=== PATIENT | female | born 1995 | race Caucasian/White ===

== ENCOUNTER 2017-04-25 06:35 | Emergency (ER) | payer OTHER ==
[2017-04-25 06:45] VITALS: RESP 18; TEMP 98.6
[2017-04-25] MEDS ORDERED: LIDOCAINE/EPINEPHR/TETRACAINE 5 ML BOTTLE TOPICAL ONE ×2 (07:58→08:01)
--- NOTE | 2017-04-25 08:05 | ED ---
Skin/Abscess/FB HPI - General Chief complaint: Skin/Abscess/Foreign Body Stated complaint: Cyst Time Seen by Provider: 04/25/17 07:30 Source: patient, RN notes reviewed Mode of arrival: ambulatory Limitations: no limitations - History of Present Illness Initial comments: This is a 22-year-old female with a benign past medical history was issues. A small cyst on her tailbone region for at least a month or so last week is getting bigger and painful. She denies any overt fevers chills or sweats at this time she states is getting more painful. Denies any dysuria hematuria or other complaints) here before. She voices no other complaints MD complaint: abscess/boil - Related Data Previous Rx's Medication Instructions Recorded Hydrocodone/Acetaminophen [[place] 1 each PO Q6HR PRN #20 tab 04/25/17 5-325] Ibuprofen 800 mg PO Q6HR PRN #20 tablet 04/25/17 Sulfamethox-Tmp 800-160Mg [Bactrim 2 each PO Q12HR #40 tab 04/25/17 DS 800-160 mg] Allergies Allergy/AdvReac Type Severity Reaction Status Date / Time No Known Allergies Allergy Verified 04/25/17 07:18 Review of Systems ROS Statement: Those systems with pertinent positive or pertinent negative responses have been documented in the HPI. ROS Other: All systems not noted in ROS Statement are negative. Past Medical History Past Medical History: No Reported History History of Any Multi-Drug Resistant Organisms: None Reported Past Surgical History: No Surgical Hx Reported Past Psychological History: No Psychological Hx Reported Smoking Status: Never smoker Past Alcohol Use History: None Reported Past Drug Use History: Marijuana General Exam - General Exam Comments Initial Comments: This is a well-developed well-nourished awake alert oriented x 3 female Limitations: no limitations General appearance: alert, in no apparent distress Head exam: Present: atraumatic, normocephalic, normal inspection Eye exam: Present: normal appearance, PERRL, EOMI. Absent: scleral icterus, conjunctival injection, periorbital swelling Rectal exam: Present: normal inspection, other ( area of erythema consistent with abscess just inferior and left-sidedThe gluteal cleft. This approximately 3 x 2 cm. Fluctuance is present no rectal tenderness. No gluteal tenderness aside from the above-mentioned area. No evidence of drainage at this time.) Extremities exam: Present: normal inspection, full ROM, normal capillary refill. Absent: tenderness, pedal edema, joint swelling, calf tenderness Back exam: Present: normal inspection Neurological exam: Present: alert, oriented X3, CN II-XII intact Psychiatric exam: Present: normal affect, normal mood Skin exam: Present: warm, dry, intact, normal color Course Vital Signs 04/25/17 06:42 Temperature 98.6 F Pulse Rate 80 Respiratory 18 Rate Blood Pressure 126/72 O2 Sat by Pulse 100 Oximetry Procedures - Incision & Drainage Consent Obtained: verbal consent Time Out Performed?: Yes Site: buttock Anesthetic Used: lidocaine 1% I&D Cleaning Method: Betadine I&D Drainage Obtained: Pus Packing: Iodoform Culture Obtained?: Yes Complications: pain Patient Tolerated Procedure: well (Meds solution was placed on the area for about 20 minutes. I then did a field block of the area and local injection of 1 % Xylocaine plain. I did use a #11 blade to incise the area and obtained about 6-7 mL of pus. The area was then explored and loculations were broken with the hemostat and then half-inch oh to form gauze was placed.) Disposition Clinical Impression: Abscess of coccyx Disposition: HOME SELF-CARE Condition: Good Instructions: Abscess Incision and Drainage (ED), Abscess (ED) Additional Instructions: Since 3 times a day times Prescriptions: Hydrocodone/Acetaminophen [N[place] 5-325] 1 each PO Q6HR PRN #20 tab PRN Reason: Pain Ibuprofen 800 mg PO Q6HR PRN #20 tablet PRN Reason: Pain Sulfamethox-Tmp 800-160Mg [Bactrim DS 800-160 mg] 2 each PO Q12HR #40 tab Referrals: None,Stated [Primary Care Provider] - 1-2 days
[2017-04-25 09:10] VITALS: BP 118/67; PULSE 95
== END 2017-04-25 09:12 | disposition home or self-care (01) ==
LOC: EC 06:35
DX: L02.212 Cutaneous abscess of back [any part, except buttock and flank] (principal)
CPT/HCPCS: 10061; 87070; 87205; 99283

== ENCOUNTER 2017-05-05 23:15 | Emergency (ER) | payer SELFPAY ==
[2017-05-05 23:21] VITALS: BP 121/61; PULSE 82; RESP 18; TEMP 98.6
[2017-05-05] MEDS ORDERED: predniSONE 50 MG TAB PO STA (23:43)
[2017-05-05] MEDS ORDERED: FAMOTIDINE 20 MG TAB PO STA (23:43)
[2017-05-05] MEDS ORDERED: diphenhydrAMINE 50 MG CAP PO STA (23:43)
--- NOTE | 2017-05-05 23:47 | ED ---
Allergic Reaction HPI - General Chief complaint: Allergic Reaction Stated complaint: Rash Time Seen by Provider: 05/05/17 23:25 Source: patient, family, RN notes reviewed Mode of arrival: ambulatory Limitations: no limitations - History of Present Illness Initial Comments: 22-year-old female presented emergency Department chief complaint ALLERGIC reaction to Bactrim. Patient states that she started yesterday with symptoms in the morning and states that symptoms worsen. Patient states she has discontinued the Bactrim. She was sickness for abscess in her buttocks region which has resolved. Patient denies any fevers or chills. Denies any difficulty swallowing or breathing. She states reaction to get worse when she went out the sun today. - Related Data Home Medications Medication Instructions Recorded Confirmed Sulfamethox-Tmp 800-160Mg [Bactrim 2 tab PO Q12HR 05/05/17 05/05/17 DS 800-160 mg] Previous Rx's Medication Instructions Recorded diphenhydrAMINE [Benadryl] 50 mg PO QID PRN #20 capsule 05/05/17 predniSONE 50 mg PO DAILY #4 tab 05/05/17 Allergies Allergy/AdvReac Type Severity Reaction Status Date / Time No Known Allergies Allergy Verified 05/05/17 23:26 Review of Systems ROS Statement: Those systems with pertinent positive or pertinent negative responses have been documented in the HPI. ROS Other: All systems not noted in ROS Statement are negative. Past Medical History Past Medical History: No Reported History History of Any Multi-Drug Resistant Organisms: None Reported Past Surgical History: No Surgical Hx Reported Past Psychological History: No Psychological Hx Reported Smoking Status: Never smoker Past Alcohol Use History: None Reported Past Drug Use History: Marijuana General Exam Limitations: no limitations General appearance: alert, in no apparent distress Head exam: Present: atraumatic, normocephalic, normal inspection ENT exam: Present: normal oropharynx Neck exam: Present: normal inspection. Absent: tenderness, meningismus, lymphadenopathy Respiratory exam: Present: normal lung sounds bilaterally. Absent: respiratory distress, wheezes, rales, rhonchi, stridor Cardiovascular Exam: Present: regular rate, normal rhythm, normal heart sounds. Absent: systolic murmur, diastolic murmur, rubs, gallop, clicks Neurological exam: Present: alert, oriented X3, CN II-XII intact Skin exam: Present: warm, dry, intact, normal color, rash (Diffuse erythematous , urticarial rash noted diffusely over the body) Course Vital Signs 05/05/17 23:17 Temperature 98.6 F Pulse Rate 82 Respiratory 18 Rate Blood Pressure 121/61 O2 Sat by Pulse 99 Oximetry Medical Decision Making - Medical Decision Making 22-year-old female presented for ALLERGIC reaction Bactrim. Patient does appear to be an photosensitivity reaction To be taking medication. She did admit to going in the sun but states symptoms started prior to going on in the sun. Patient be continued on antihistamine at home. Patient does not need any further antibiotics this time return parameters discussed. Disposition Clinical Impression: Allergic reaction, Photosensitivity dermatitis Disposition: HOME SELF-CARE Condition: Stable Instructions: General Allergic Reaction (ED) Additional Instructions: Please return to the Emergency Department if symptoms worsen or any other concerns. Prescriptions: diphenhydrAMINE [Benadryl] 50 mg PO QID PRN #20 capsule PRN Reason: allergic symtpoms predniSONE 50 mg PO DAILY #4 tab Referrals: None,Stated [Primary Care Provider] - 1-2 days Time of Disposition: 23:47
== END 2017-05-05 23:56 | disposition home or self-care (01) ==
LOC: EC 23:15
DX: L50.0 Allergic urticaria (principal); T37.0X5A Adverse effect of sulfonamides, initial encounter; L30.8 Other specified dermatitis
CPT/HCPCS: 99283; J7512

== ENCOUNTER 2017-06-08 23:51 | Emergency (ER) | payer SELFPAY ==
--- NOTE | 2017-06-09 01:53 | ED ---
General Adult HPI - General Chief complaint: Extremity Injury, Lower Stated complaint: Ankle Injury Time Seen by Provider: 06/09/17 01:18 Source: patient, RN notes reviewed Mode of arrival: ambulatory Limitations: no limitations - History of Present Illness Initial comments: 22 -year-old female presents to the emergency department with a chief complaint of left ankle pain. Patient states she is old today. Patient states she has pain to the inside of it. Patient was concerned due to her pain so she thought that she should be seen. Patient states that nothing else was injured. Patient states worse to walk on. He shouldn't states she is not currently having any other symptoms at this time.Patient denies any recent fever, chills, shortness of breath, chest pain, back pain, abdominal pain, nausea vomiting, numbness or tingling, dysuria or hematuria, constipation or diarrhea, headaches or visual changes, or any other current symptoms. - Related Data Home Medications Medication Instructions Recorded Confirmed No Known Home Medications [No 06/09/17 06/09/17 Known Home Medications] Allergies Allergy/AdvReac Type Severity Reaction Status Date / Time No Known Allergies Allergy Verified 06/09/17 00:12 Review of Systems ROS Statement: Those systems with pertinent positive or pertinent negative responses have been documented in the HPI. ROS Other: All systems not noted in ROS Statement are negative. Past Medical History Past Medical History: No Reported History History of Any Multi-Drug Resistant Organisms: None Reported Past Surgical History: No Surgical Hx Reported Past Psychological History: No Psychological Hx Reported Smoking Status: Never smoker Past Alcohol Use History: None Reported Past Drug Use History: Marijuana General Exam - General Exam Comments Initial Comments: General: The patient is awake and alert, in no distress, and does not appear acutely ill. Neck: The neck is supple, there is no tenderness. Cardiovascular: There is a regular rate and rhythm. No murmur, rub or gallop is appreciated. Respiratory: Lungs are clear to auscultation, respirations are non-labored, breath sounds are equal. No wheezes, stridor, rales, or rhonchi. Musculoskeletal: Sensation intact with 2+ pulses throughout the left lower extremity. Full range of motion of left knee and left ankle. There is some tenderness over the medial malleolus. No deformity noted. No bruising. No proximal tib-fib tenderness. Neurological: CN II-XII intact, There are no obvious motor or sensory deficits. Coordination appears grossly intact. Speech is normal. Skin: Skin is warm and dry and no rashes or lesions are noted. Psychiatric: Normal mood and affect. Limitations: no limitations Course Vital Signs 06/09/17 00:10 Temperature 97.9 F Pulse Rate 68 Respiratory 18 Rate Blood Pressure 100/58 O2 Sat by Pulse 99 Oximetry Medical Decision Making - Medical Decision Making 22-year-old female presents for left ankle sprain. In triage she did request STD testing and a urine routinely. She is not concerned about these. She discussed that she'll follow-up with her doctor for this. We did give her referral to a PCP. We discussed her x-rays Motrin Tylenol but ice will also help. We discussed return parameters and all questions. Patient stated she understood and she is very plan. She'll be discharged. - Radiology Data Radiology results: report reviewed, image reviewed Disposition Clinical Impression: Left ankle sprain Disposition: HOME SELF-CARE Condition: Stable Instructions: Ankle Sprain (ED) Additional Instructions: Please use medication as discussed. Please follow up with family doctor if symptoms have not improved over the next two days. Please return to the emergency room if your symptoms increase or worsen or for any other concerns. Referrals: Missy Hale MD [STAFF PHYSICIAN] - 1-2 days Time of Disposition: 02:24
--- NOTE | 2017-06-09 02:21 | XR ---
PROCEDURE: FILM LEFT ANKLE HISTORY: 22-year-old female with left ankle pain after injury. COMPARISON: None TECHNIQUE: Frontal, lateral, and oblique views of the left ankle were obtained. FINDINGS: Bony structures are intact. Joint spaces are preserved. Mild soft tissue swelling. IMPRESSION: No Mild soft tissue swelling without evidence of acute fracture or subluxation.
[2017-06-09 02:38] VITALS: BP 120/66; PULSE 54; RESP 16; TEMP 97.5
== END 2017-06-09 02:47 | disposition home or self-care (01) ==
LOC: EC 23:51
DX: S93.402A Sprain of unspecified ligament of left ankle, initial encounter (principal); X50.1XXA Overexertion from prolonged static or awkward postures, initial encounter; Y92.69 Other specified industrial and construction area as the place of occurrence of the external cause
CPT/HCPCS: 99283

== ENCOUNTER 2017-08-07 13:30 | Emergency (ER) | payer SELFPAY ==
[2017-08-07 13:46] VITALS: BP 121/73; PULSE 59; RESP 17; TEMP 99
[2017-08-07] MEDS ORDERED: ACETAMINOPHEN TAB 325 MG TAB PO STA (14:06)
[2017-08-07] MEDS: BACITRACIN 500 UNIT/GM OINT 28.4 GM TUBE TOPICAL ONE ×2 (14:15→14:21)
--- NOTE | 2017-08-07 14:17 | ED ---
Head Injury HPI - General Chief complaint: Fall Stated complaint: Fall. Head laceration Time Seen by Provider: 08/07/17 14:00 Source: patient Mode of arrival: ambulatory Limitations: no limitations - History of Present Illness Initial comments: patient w/ no past medical history presents after a fall. she states she was in her bathroom getting ready to take her shower, when her feet got tangled up and she tripped and fell. States the top of her head hit the toilet, she came to the ER because she noticed bleeding from the top of her head. Denies blood thinner use. Denies loss of consciousness. Patient states she has a mild headache in the area of the bleeding. Patient denies injury or symptoms to any other area of the body. Patient denies vision changes, numbness, weakness, confusion, speech problems, nausea, vomiting, neck pain, back pain. Occultly with ambulation since the event. No preceding symptoms prior to the fall. MD Complaint: head injury, fall Onset/Timin -: hour(s) Mechanism of Injury: mechanical fall Loss of Consciousness: no Previous Trauma to this Area: No Place: home Severity: mild - Related Data Home Medications Medication Instructions Recorded Confirmed No Known Home Medications [No 06/09/17 08/07/17 Known Home Medications] Allergies/Adverse reactions: Allergies Allergy/AdvReac Type Severity Reaction Status Date / Time No Known Allergies Allergy Verified 08/07/17 13:54 Review of Systems ROS Statement: Those systems with pertinent positive or pertinent negative responses have been documented in the HPI. ROS Other: All systems not noted in ROS Statement are negative. Constitutional: Denies: fever, chills, weakness Eyes: Denies: eye pain, eye discharge, vision change ENT: Denies: ear pain, throat pain, dental pain, hearing loss, epistaxis, congestion Respiratory: Denies: cough, dyspnea Cardiovascular: Denies: chest pain Endocrine: Denies: fatigue Gastrointestinal: Denies: abdominal pain, nausea, vomiting Genitourinary: Reports: other (Denies flank pain) Musculoskeletal: Denies: back pain, joint swelling, arthralgia Skin: Reports: lesions (Bleeding on top of head.). Denies: rash Neurological: Denies: headache, weakness, numbness, paresthesias, confusion Hematological/Lymphatic: Denies: easy bleeding Past Medical History Past Medical History: No Reported History History of Any Multi-Drug Resistant Organisms: None Reported Past Surgical History: No Surgical Hx Reported Past Psychological History: No Psychological Hx Reported Smoking Status: Never smoker Past Alcohol Use History: None Reported Past Drug Use History: Marijuana General Exam - General Exam Comments Initial Comments: Sitting up in bed. No acute distress. Conversing normally. Calm, pleasant. Well-appearing. Limitations: no limitations General appearance: alert, in no apparent distress Head exam: Present: normocephalic, other (patient was small amount of dried blood on top of her head. Appears to have superficial abrasion on the crown of head, approximately half centimeter in diameter. No active bleeding. No underlying hematoma. No lacerations visualized.) Eye exam: Present: normal appearance, PERRL, EOMI ENT exam: Present: normal exam, normal oropharynx, mucous membranes moist, normal external ear exam Neck exam: Present: normal inspection, full ROM. Absent: tenderness Respiratory exam: Present: normal lung sounds bilaterally. Absent: respiratory distress, wheezes, rales Cardiovascular Exam: Present: regular rate, normal rhythm GI/Abdominal exam: Present: soft. Absent: distended, tenderness Extremities exam: Present: normal inspection, full ROM, normal capillary refill. Absent: tenderness, joint swelling Back exam: Present: normal inspection, full ROM. Absent: tenderness, CVA tenderness (R), paraspinal tenderness, vertebral tenderness Neurological exam: Present: alert, oriented X3, CN II-XII intact, normal gait, reflexes normal. Absent: motor sensory deficit Psychiatric exam: Present: normal affect, normal mood Skin exam: Present: warm, dry, other (See head exam) Course Vital Signs 08/07/17 13:43 Temperature 99.0 F Pulse Rate 59 L Respiratory 17 Rate Blood Pressure 121/73 O2 Sat by Pulse 100 Oximetry Medical Decision Making - Medical Decision Making patient's only complaint is small amount of bleeding on top of her head, with mild localized pain in the area. No loss of consciousness or blood thinner use. Patient has no focal neuro deficits on exam. Superficial abrasion does not appear to require sutures or dominic, as no lacerations seen. Will clean wound with sterile saline, apply bacitracin ointment, apply wound dressing. Patient follow-up with primary care physician. Return to ED if new or worsening symptoms. Patient understands and agrees. Is happy with plan of care. Disposition Clinical Impression: Fall, Abrasion of head Disposition: HOME SELF-CARE Condition: Good Instructions: Fall Prevention for Older Adults (ED), Abrasion (ED) Additional Instructions: return to the ER if any new or worsening symptoms including confusion, vision changes, increased bleeding, nausea, vomiting, weakness, neck pain, numbness. Referrals: None,Stated [Primary Care Provider] - 1-2 days
== END 2017-08-07 14:22 | disposition home or self-care (01) ==
LOC: EC 13:30
DX: S00.91XA Abrasion of unspecified part of head, initial encounter (principal); W01.10XA Fall on same level from slipping, tripping and stumbling with subsequent striking against unspecified object, initial encounter
CPT/HCPCS: 99283

== ENCOUNTER 2017-08-21 06:17 | Emergency (ER) | payer BC ==
[2017-08-21 06:24] VITALS: RESP 18
--- NOTE | 2017-08-21 08:03 | ED ---
General Adult HPI - General Chief complaint: Skin/Abscess/Foreign Body Stated complaint: Cyst on Tailbone Time Seen by Provider: 08/21/17 07:09 Source: patient, RN notes reviewed Mode of arrival: ambulatory Limitations: no limitations - History of Present Illness Initial comments: Patient is a pleasant 22-year-old female presenting to the emergency department with a cyst on her tailbone. Patient had just had this drained previously several months ago. Patient states it isn't bothering her for a few weeks and worse this past week. Patient states it is tender. No fevers. No redness. - Related Data Previous Rx's Medication Instructions Recorded Cephalexin [Keflex] 500 mg PO QID #40 cap 08/21/17 Allergies Allergy/AdvReac Type Severity Reaction Status Date / Time sulfamethoxazole AdvReac Rash/Hives Verified 08/21/17 07:49 [From Bactrim] trimethoprim [From Bactrim] AdvReac Rash/Hives Verified 08/21/17 07:49 Review of Systems ROS Statement: Those systems with pertinent positive or pertinent negative responses have been documented in the HPI. ROS Other: All systems not noted in ROS Statement are negative. Constitutional: Denies: fever Eyes: Denies: eye pain ENT: Denies: ear pain Respiratory: Denies: cough Cardiovascular: Denies: chest pain Endocrine: Denies: fatigue Gastrointestinal: Denies: abdominal pain Genitourinary: Denies: dysuria Musculoskeletal: Denies: back pain Skin: Reports: lesions. Denies: rash Neurological: Denies: weakness Past Medical History Past Medical History: No Reported History History of Any Multi-Drug Resistant Organisms: None Reported Past Surgical History: No Surgical Hx Reported Past Psychological History: No Psychological Hx Reported Smoking Status: Never smoker Past Alcohol Use History: None Reported Past Drug Use History: Marijuana General Exam Limitations: no limitations General appearance: alert, in no apparent distress Head exam: Present: atraumatic Eye exam: Present: normal appearance Neck exam: Present: normal inspection Respiratory exam: Present: normal lung sounds bilaterally Extremities exam: Present: normal inspection Neurological exam: Present: alert Psychiatric exam: Present: normal affect, normal mood Skin exam: Present: other (Pilonidal region cyst with tenderness. No erythema or warmth.) Course Vital Signs 08/21/17 06:20 Temperature 98.2 F Pulse Rate 107 H Respiratory 18 Rate Blood Pressure 115/68 O2 Sat by Pulse 100 Oximetry Procedures - Incision & Drainage Consent Obtained: verbal consent Time Out Performed?: Yes Site: buttock Anesthetic Used: lidocaine 1% Amount (mLs): 3 I&D Cleaning Method: Betadine Scalpel Used: #11 I&D Drainage Obtained: Pus Culture Obtained?: Yes Patient Tolerated Procedure: well, no complications Disposition Clinical Impression: Pilonidal abscess Disposition: HOME SELF-CARE Condition: Stable Instructions: Abscess (ED) Additional Instructions: Please follow-up with surgeon and primary care physician in the next few days for recheck. Return for fever, redness, increased pain, increased swelling, worsening symptoms or other concerns. Prescriptions: Cephalexin [Keflex] 500 mg PO QID #40 cap Referrals: Smith Youssef DO [Doctor of Osteopathic Medicine] - 1-2 days Lio Oleary MD [STAFF PHYSICIAN] - 1-2 days Time of Disposition: 08:02
[2017-08-21 08:13] VITALS: BP 125/58; PULSE 72; TEMP 97.9
== END 2017-08-21 08:13 | disposition home or self-care (01) ==
LOC: EC 06:17
DX: L05.01 Pilonidal cyst with abscess (principal); Z88.1 Allergy status to other antibiotic agents
CPT/HCPCS: 10060; 87070; 87205; 99283